=== PATIENT | male | born 2000 | race Caucasian/White ===

== ENCOUNTER 2021-09-12 20:33 | Outpatient (REF) | payer MEDICARE, SELFPAY ==
[2021-09-12 21:34] LABS: HCT 50.8 % (40.0-50.0); HGB 16.5 g/dL (13.5-17.5); MCH 30.5 pg (27.0-33.0); MCHC 32.5 % (32.0-36.0); MCV 94 fL (80-95); MPV 10.6 fL (8.0-11.0); Platelet Count 216 10^3/uL (130-400); RBC 5.41 10^6/uL (4.36-5.78); RDW 12.2 % (11.8-14.1); RDW-SD 42.6 fL; WBC 5.93 10^3/uL (4.4-10.8)
[2021-09-12 21:42] LABS: VALPROIC ACID 126.9 ug/mL
[2021-09-12 21:54] LABS: ALT 28 U/L (16-63); AST 15 U/L (15-37); Albumin 4.4 g/dL (3.4-5.0); Alkaline Phosphatase 55 U/L (46-116); Anion Gap 11.3 mmol/L (3-11); BUN 10 mg/dL (7-18); Bilirubin, Total 0.5 mg/dL (0.2-1.0); CO2 27.7 mmol/L (21.0-32.0); Calcium 9.6 mg/dL (8.5-10.1); Calculated LDL 129 mg/dL (<100); Chloride 105 mmol/L (98-107); Cholesterol 196 mg/dL (<200); Glucose 89 mg/dL (74-106); HDL Cholesterol 36 mg/dL (40-60); Potassium 4.7 mmol/L (3.5-5.1); Sodium 144 mmol/L (136-145); Total Protein 8.1 g/dL (6.4-8.2); Triglyceride 158 mg/dL (<150)
[2021-09-12 21:55] LABS: Hemoglobin A1C 5.3 % (<5.7)
== END 2021-09-12 20:34 | disposition home or self-care (01) ==
LOC: NCHCN 20:33
PROVIDERS: Visit Provider Nurse Practitioner Family
DX: F90.9 Attention-deficit hyperactivity disorder, unspecified type (principal); E66.3 Overweight; Z79.899 Other long term (current) drug therapy; Z51.81 Encounter for therapeutic drug level monitoring; Z00.00 Encounter for general adult medical examination without abnormal findings
CPT/HCPCS: 80053; 80061; 85027; 80164; 83036

== ENCOUNTER 2021-09-21 08:08 | Outpatient (REF) | payer MEDICARE, SELFPAY ==
[2021-09-21 15:07] LABS: VALPROIC ACID 58.9 ug/mL
== END 2021-09-21 08:09 | disposition home or self-care (01) ==
LOC: NCHCN 08:08
PROVIDERS: Visit Provider Nurse Practitioner Family
DX: F90.9 Attention-deficit hyperactivity disorder, unspecified type (principal); Z51.81 Encounter for therapeutic drug level monitoring; Z79.899 Other long term (current) drug therapy
CPT/HCPCS: 80164

== ENCOUNTER 2021-10-17 08:33 | Outpatient (REF) | payer MEDICARE, SELFPAY | END 2021-10-17 08:34 | disposition home or self-care (01) | LOC: NCHCN 08:33 | PROVIDERS: Visit Provider Nurse Practitioner Family | DX: F90.9 Attention-deficit hyperactivity disorder, unspecified type (principal); Z51.81 Encounter for therapeutic drug level monitoring; Z79.899 Other long term (current) drug therapy | CPT/HCPCS: 80164 ==

== ENCOUNTER 2022-12-12 15:30 | Outpatient (REF) | payer MEDICARE, SELFPAY ==
[2022-12-12 21:31] LABS: HCT 49.1 % (40.0-50.0); HGB 16.3 g/dL (13.5-17.5); MCH 31.5 pg (27.0-33.0); MCHC 33.2 % (32.0-36.0); MCV 95 fL (80-95); MPV 10.6 fL (8.0-11.0); Platelet Count 214 10^3/uL (130-400); RBC 5.17 10^6/uL (4.36-5.78); RDW 12.3 % (11.8-14.1); RDW-SD 43.3 fL; WBC 7.09 10^3/uL (4.4-10.8)
[2022-12-12 22:03] LABS: ALT 62 U/L (16-63); AST 28 U/L (15-37); Albumin 4.3 g/dL (3.4-5.0); Alkaline Phosphatase 53 U/L (46-116); Anion Gap 9.9 mmol/L (3-11); BUN 14 mg/dL (7-18); Bilirubin, Direct 0.1 mg/dL (0.0-0.2); Bilirubin, Total 0.3 mg/dL (0.2-1.0); CO2 29.1 mmol/L (21.0-32.0); CREATININE 0.9 mg/dL (0.70-1.30); Calcium 9.6 mg/dL (8.5-10.1); Chloride 104 mmol/L (98-107); Estimated GFR 123.07 (mL/min/1.73m2); Glucose 89 mg/dL (74-106); Potassium 4.1 mmol/L (3.5-5.1); Sodium 143 mmol/L (136-145); Total Protein 8.2 g/dL (6.4-8.2)
[2022-12-12 22:58] LABS: VALPROIC ACID 82.7 ug/mL
== END 2022-12-12 15:31 | disposition home or self-care (01) ==
LOC: NCHCN 15:30
PROVIDERS: Visit Provider Family Medicine
DX: E66.3 Overweight (principal); F90.9 Attention-deficit hyperactivity disorder, unspecified type; Z79.899 Other long term (current) drug therapy; Z51.81 Encounter for therapeutic drug level monitoring
CPT/HCPCS: 80053; 80076; 85027; 80164

== ENCOUNTER 2023-12-14 01:30 | Outpatient (CLI) | payer MEDICARE, SELFPAY ==
[2023-12-14 13:27] LABS: Hemoglobin A1C 5.5 % (<5.7)
[2023-12-14 13:34] LABS: Cholesterol 225 mg/dL (<200); HDL Cholesterol 33 mg/dL (40-60); LDL CHOLESTEROL 165 mg/dL (<100)
== END 2023-12-14 01:31 | disposition home or self-care (01) ==
LOC: LBO 01:31
PROVIDERS: Visit Provider Psychiatry & Neurology Psychiatry
DX: Z79.899 Other long term (current) drug therapy (principal); F70 Mild intellectual disabilities
CPT/HCPCS: 36415; 83721; 80164; 82465; 83036; 83718

== ENCOUNTER 2024-02-15 09:12 | Outpatient (REF) | payer MEDICARE, MEDICAID, SELFPAY ==
[2024-02-15 14:48] LABS: HCT 51.3 % (40.0-50.0); HGB 16.7 g/dL (13.5-17.5); MCH 31.2 pg (27.0-33.0); MCHC 32.6 % (32.0-36.0); MCV 96 fL (80-95); Platelet Count 138 10^3/uL (130-400); RBC 5.35 10^6/uL (4.36-5.78); RDW 12.4 % (11.8-14.1); RDW-SD 43.8 fL; WBC 5.67 10^3/uL (4.4-10.8)
[2024-02-15 15:03] LABS: VALPROIC ACID 101.6 ug/mL
[2024-02-15 15:26] LABS: ALT 68 U/L (16-63); AST 45 U/L (15-37); Alkaline Phosphatase 50 U/L (46-116); BUN 11 mg/dL (7-18); Bilirubin, Total 0.37 mg/dL (0.2-1.0); Calcium 9.6 mg/dL (8.5-10.1); Calculated LDL 154 mg/dL (<100); Chloride 106 mmol/L (98-107); Cholesterol 216 mg/dL (<200); Estimated GFR 107.78 (mL/min/1.73m2); Glucose 90 mg/dL (74-106); HDL Cholesterol 33 mg/dL (40-60); Potassium 4.4 mmol/L (3.5-5.1); Sodium 143 mmol/L (136-145); TSH (W/Ref FT4) 5.41 uIU/mL (0.36-3.74); Total Protein 8.1 g/dL (6.4-8.2); Triglyceride 149 mg/dL (<150)
[2024-02-15 15:45] LABS: FREE T4 1.08 ng/dL (0.76-1.46)
== END 2024-02-15 09:13 | disposition home or self-care (01) ==
LOC: NCHCN 09:12
PROVIDERS: PCP Family Medicine; Visit Provider Family Medicine
DX: E66.9 Obesity, unspecified (principal); F89 Unspecified disorder of psychological development
CPT/HCPCS: 80053; 80061; 85027; 80164; 84439; 84443

== ENCOUNTER 2024-05-26 14:42 | Outpatient (REF) | payer MEDICARE, MEDICAID, SELFPAY ==
[2024-05-26 21:28] LABS: VALPROIC ACID 91.7 ug/mL
[2024-05-26 22:02] LABS: ALT 83 U/L (16-63); AST 47 U/L (15-37); Alkaline Phosphatase 46 U/L (46-116); BUN 14 mg/dL (7-18); Bilirubin, Total 0.29 mg/dL (0.2-1.0); CREATININE 1.1 mg/dL (0.70-1.30); Calcium 9.8 mg/dL (8.5-10.1); Chloride 106 mmol/L (98-107); Estimated GFR 96.14 (mL/min/1.73m2); Glucose 113 mg/dL (74-106); Potassium 4.2 mmol/L (3.5-5.1); Sodium 144 mmol/L (136-145); Total Protein 7.7 g/dL (6.4-8.2)
== END 2024-05-26 14:43 | disposition home or self-care (01) ==
LOC: NCHCN 14:42
PROVIDERS: PCP Family Medicine; Visit Provider Family Medicine
DX: F89 Unspecified disorder of psychological development (principal)
CPT/HCPCS: 80053; 80164

== ENCOUNTER 2024-07-31 17:18 | Outpatient (REF) | payer MEDICARE, MEDICAID, SELFPAY ==
[2024-07-31 17:20] LABS: VALPROIC ACID 102.6 ug/mL
[2024-07-31 17:47] LABS: ALT 77 U/L (16-63); AST 51 U/L (15-37); Albumin 3.9 g/dL (3.4-5.0); Alkaline Phosphatase 44 U/L (46-116); Anion Gap 12.8 mmol/L (3-11); BUN 15 mg/dL (7-18); Bilirubin, Total 0.4 mg/dL (0.2-1.0); CO2 25.2 mmol/L (21.0-32.0); Calcium 9.8 mg/dL (8.5-10.1); Calculated LDL 136 mg/dL (<100); Chloride 107 mmol/L (98-107); Cholesterol 202 mg/dL (<200); Estimated GFR 107.78 (mL/min/1.73m2); Glucose 87 mg/dL (74-106); HDL Cholesterol 39 mg/dL (>or=40); Potassium 4.1 mmol/L (3.5-5.1); Sodium 145 mmol/L (136-145); Total Protein 7.6 g/dL (6.4-8.2); Triglyceride 137 mg/dL (<150); Vitamin B12 452 pg/mL (193-986); Vitamin D 25 Total 14 ng/mL (30-100)
[2024-07-31 18:11] LABS: FREE T4 1.07 ng/dL (0.76-1.46)
[2024-08-01 19:05] LABS: T3,Free 4.6 pg/mL (2.8-5.3)
[2024-08-01 19:58] LABS: Prolactin 50.5 ng/mL (2.1-17.7)
== END 2024-07-31 17:19 | disposition home or self-care (01) ==
LOC: LBN 17:18
PROVIDERS: PCP Family Medicine; Visit Provider Psychiatry & Neurology Psychiatry
DX: Z79.899 Other long term (current) drug therapy (principal)
CPT/HCPCS: 80053; 80061; 82306; 80164; 82607; 84146; 84439; 84443; 84481

== ENCOUNTER 2024-10-21 03:06 | Outpatient (CLI) | payer MEDICARE, MEDICAID, SELFPAY ==
[2024-10-21 11:13] LABS: ALT 37 U/L (16-63); AST 20 U/L (15-37); Albumin 3.6 g/dL (3.4-5.0); Alkaline Phosphatase 49 U/L (46-116); Anion Gap 10.9 mmol/L (3-11); BUN 12 mg/dL (7-18); Bilirubin, Direct 0.1 mg/dL (0.0-0.2); Bilirubin, Total 0.2 mg/dL (0.2-1.0); CO2 27.1 mmol/L (21.0-32.0); Calcium 9.5 mg/dL (8.5-10.1); Chloride 105 mmol/L (98-107); Estimated GFR 107.12 (mL/min/1.73m2); Glucose 138 mg/dL (74-106); Potassium 3.5 mmol/L (3.5-5.1); Sodium 143 mmol/L (136-145); TSH 5.83 uIU/mL (0.36-3.74); Total Protein 7.3 g/dL (6.4-8.2)
[2024-10-21 11:19] LABS: VALPROIC ACID 57.4 ug/mL
[2024-10-21 11:53] LABS: Calculated LDL 124 mg/dL (<100); Cholesterol 200 mg/dL (<200); HDL Cholesterol 28 mg/dL (>or=40); T4 9.7 ug/dL (4.7-13.3); Triglyceride 243 mg/dL (<150); Vitamin B12 423 pg/mL (193-986); Vitamin D 25 Total 22 ng/mL (30-100)
[2024-10-21 18:17] LABS: T3, Total 204 ng/dL (97-169)
[2024-10-21 19:07] LABS: Prolactin 50.1 ng/mL (2.1-17.7)
[2024-10-21 19:15] LABS: Hepatitis B Surface Ag Negative (Negative)
[2024-10-21 19:48] LABS: Hepatitis C Ab w Rflx HCV PCR Negative (Negative)
== END 2024-10-21 03:07 | disposition home or self-care (01) ==
PROVIDERS: PCP Family Medicine; Visit Provider Psychiatry & Neurology Psychiatry
DX: Z79.899 Other long term (current) drug therapy (principal)
CPT/HCPCS: 36415; 80053; 80061; 80076; 80307; 82306; 86803; 87340; 80164; 82607; 84146; 84436; 84443; 84480